=== PATIENT | male | born 1980 | race Caucasian/White ===

== ENCOUNTER → 2021-03-11 | Outpatient (CLI) | payer BC, OTHER ==
[~2021-03-11] MED LIST: NF-OLOP5ML OP
--- NOTE | 2021-03-11 16:13 | Diagnostic Imaging Report ---
EXAMINATION: Left hip unilateral 2 or 3 views (w/pelvis when done) HISTORY: LT KNEE PAIN, LT HIP PAIN, LOWER BACK PAIN COMPARISON: None available. FINDINGS: There are no fractures or dislocations. The joint spaces preserved. Soft tissues unremarkable. IMPRESSION: No acute fracture. Dictated by: Dictated on workstation # [id number]
--- NOTE | 2021-03-11 16:14 | Diagnostic Imaging Report ---
EXAMINATION: Lumbosacral spine 2 or 3 views HISTORY: Pain COMPARISON: None available. FINDINGS: There is normal height and alignment of the vertebral bodies with no fractures or subluxations. The intervertebral spaces appear preserved. Soft tissues unremarkable. IMPRESSION: 1. No acute process. Dictated by: Dictated on workstation # [id number]
--- NOTE | 2021-03-11 16:17 | Diagnostic Imaging Report ---
INDICATION: Pain EXAMINATION: Left knee 03/11/2021 FINDINGS: 3 views of the knee There is no significant joint effusion. There are no fractures or dislocations. The joint spaces appear preserved. IMPRESSION: 1. No acute process. Dictated by: Dictated on workstation # [id number]
== END ==
LOC: RAD 15:32
PROVIDERS: ATTEND Nurse Practitioner
DX: M25.562 Pain in left knee (principal); M25.552 Pain in left hip
CPT/HCPCS: 72100; 73502; 73562